=== PATIENT | male | born 1990 | race African-American/Black ===

== ENCOUNTER 2021-10-24 08:06 | Emergency (ER) | payer OTHER ==
[2021-10-24 08:25] VITALS: BP 153/91
--- NOTE | 2021-10-24 10:36 | ED Physician Documentation ---
History of Present Illness - Stated complaint Stated Complaint: CHEST SPASMS - Chief complaint Chief Complaint: General - History obtained from History obtained from: Patient - Additonal information Additional information: The patient comes to the emergency department chief complaint of left chest muscle twitching that started yesterday. He states he has not had any chest pain or shortness of breath. He has not been recently ill. He was in [place] for few weeks and just came home last week, and does state that he did a lot of sweating while he was there. However, he has not done any major exertional activities recently that involved excessive amounts of sweat loss. He states that he drinks plenty of water. He does not sleep well at night and usually feels stress over his work situation. He has not worked out with his chest muscles recently. No other complaints at this time. He states he is otherwise healthy. Review of Systems Ten Systems: 10 systems reviewed and negative Constitutional: reports: Reviewed and negative Eyes: reports: Reviewed and negative Ears: reports: Reviewed and negative Nose: reports: Reviewed and negative Throat: reports: Reviewed and negative Cardiac: reports: Reviewed and negative Respiratory: reports: Reviewed and negative GI: reports: Reviewed and negative : reports: Reviewed and negative Skin: reports: Reviewed and negative Musculoskeletal: reports: Reviewed and negative Neurologic: reports: Reviewed and negative Psychiatric: reports: Reviewed and negative Endocrine: reports: Reviewed and negative Immunocompromised: reports: Reviewed and negative PD PAST MEDICAL HISTORY - Allergies Allergies/Adverse Reactions: Allergies Allergy/AdvReac Type Severity Reaction Status Date / Time No Known Drug Allergies Allergy Verified 10/24/21 08:25 PD ED PE NORMAL - Vitals Vital signs reviewed: Yes - General General: Alert and oriented X 3, No acute distress, Well developed/nourished - HEENT HEENT: Atraumatic, PERRL, EOMI, Moist mucous membranes - Neck Neck: Supple, no meningeal sign - Cardiac Cardiac: RRR, No murmur - Respiratory Respiratory: No respiratory distress, Clear bilaterally - Abdomen Abdomen: Soft, Non tender, Non distended - Derm Derm: Normal color, Warm and dry, No rash - Extremities Extremities: No deformity, No edema - Neuro Neuro: Alert 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 oriented 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, 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, Normal speech - Psych Psych: Normal mood, Normal affect Results - Vitals Vitals: Vital Signs - 24 hr 08/04/22 08:23 Temperature 36.1 C L Heart Rate 84 Respiratory 20 Rate Blood Pressure 153/91 H O2 Saturation 99 Oxygen O2 Source Room air - EKG (time done) 0958 Rate: Rate (enter#) (93) Rhythm: NSR Kinney: Normal Intervals: Normal MO QRS: Normal Ischemia: Normal ST segments Compare to prior EKG: Old EKG unavailable Computer interpretation: Agree with computer PD MEDICAL DECISION MAKING - ED course Complexity details: reviewed results, re-evaluated patient, considered differential, d/w patient ED course: Unfortunately, there was no chest twitching at the time of patient's presentation to the emergency department, and so I was unable to observe this. 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 I have advised him that he may drink some electrolyte solutions over the next couple of days if he wishes but overall, this is a benign condition and should resolve on its own. We have discussed the usual indications for return. Departure - Departure Disposition: 01 Home, Self Care Clinical Impression: Muscle twitch Condition: Stable Instructions: ED Spasm Muscle Comments: Your symptoms are consistent with a superficial muscle twitch, which is usually the result of fatigue or stress. It is not clear why a small muscle or nerve group is affected, but this is a benign and usually temporary condition. If you have been excessively sweating recently, is in having run a marathon in the heat or some such event, electrolyte abnormalities can also cause this. You may drink a couple of bottles of electrolyte solution over the next couple of days if you wish and this can help with any lingering electrolyte abnormalities you may have incurred while in the heat in [place]. Your EKG looks fantastic, and your heart and lung exam is normal, and there is no evidence that your symptoms are linked to an abnormal heart rhythm. Please follow-up with your primary care physician for further concerns. Forms: Activity restrictions
== END 2021-10-24 10:41 | disposition home or self-care (01) ==
LOC: ED 08:06
DX: R25.3 Fasciculation (principal)
CPT/HCPCS: 93005; 99282; 99283